=== PATIENT | male | born 1970 | race American Indian/Alaskan Native ===

== ENCOUNTER 2018-08-03 04:52 | Emergency (ER) | payer OTHER, BC ==
[~2018-08-03] VITALS: Ht 175.3 cm; Wt 99.8 kg
== END 2018-08-03 06:32 | disposition home or self-care (01) ==
LOC: ER 04:52
DX: S20.311A Abrasion of right front wall of thorax, initial encounter (principal); V89.2XXA Person injured in unspecified motor-vehicle accident, traffic, initial encounter
CPT/HCPCS: 71046; 74177; 81000; 99284-25; Q9967

== ENCOUNTER → 2018-08-03 | Outpatient (CLI) | payer BC ==
[~2018-08-03] MED LIST: ASPI81EC PO; AZIT250 PO; CEPH500 PO; HYDACE5 PO; HYDGUAL120 PO; IBUP200; IBUP800 PO; Norco 5-325 Ta1 EACH PO; TOBDEXOPSU OP
[2018-08-03 15:48] LABS: Source, Urine Clean Catch
[2018-08-03 16:03] LABS: White Blood Cells, Urine 0-2 /hpf (0-5)
[2018-08-03 16:04] LABS: Bacteria Not Seen /hpf; Squamous Epithelial Cells Rare /hpf (Few)
== END | disposition home or self-care (01) ==
LOC: LAB SHORT 15:45 → LAB EV 15:45
PROVIDERS: Physician Assistant
DX: M54.5 Low back pain (principal)
CPT/HCPCS: 81015